=== PATIENT | female | born 1980 | race Caucasian/White ===

== ENCOUNTER 2018-06-27 23:58 | Emergency (ER) | payer MEDICAID ==
[~2018-06-27] VITALS: Ht 165.1 cm; Wt 59.0 kg
--- NOTE | 2018-06-28 01:00 | NUR ---
Patient ambulated with steady gait. AAOx4. Speech is clear, speaks in complete sentences. Patient came with c/o abcess in bLUE on upper thighs x 6 days s/p iv drug use. Respiratory even and unlabored. No cardiovascular distress noted, alll pulses palpable. No GI/ distress. Patient in bed at lowest setting, side rails up x2, call light within reach. Fall precautions implemented per protocol.
[2018-06-28] MEDS ORDERED: SULFAMETH/TRIMETH 800/160 MG TABLET PO ONE (01:15)
[2018-06-28] MEDS ORDERED: CEphaleXIN 500 MG CAPSULE PO ONE (01:15)
[2018-06-28] MEDS ORDERED: CEphaleXIN 500 MG CAPSULE ONE (01:30)
[2018-06-28] MEDS ORDERED: SULFAMETH/TRIMETH 800/160 MG TABLET ONE (01:31)
--- NOTE | 2018-06-28 01:56 | NUR ---
Patient discharged to home in stable conditon. Written and verbal after care instructions given. Patient verbalizes understanding of instructions. Patient ambulated with stable gait.
[2018-06-28 02:15] VITALS: BP 105/67
== END 2018-06-28 02:16 | disposition home or self-care (01) ==
LOC: ER 06-28 00:02
DX: L02.416 Cutaneous abscess of left lower limb (principal); L02.415 Cutaneous abscess of right lower limb; T40.2X5A Adverse effect of other opioids, initial encounter; F11.10 Opioid abuse, uncomplicated; Y92.89 Other specified places as the place of occurrence of the external cause
CPT/HCPCS: A4663

== ENCOUNTER 2018-09-18 16:51 | Emergency (ER) | payer MEDICAID, OTHER ==
[~2018-09-18] VITALS: Ht 165.1 cm; Wt 61.2 kg
--- NOTE | 2018-09-18 17:16 | NUR ---
pt is in room #2b. dr Chris evaluated the pt.
--- NOTE | 2018-09-18 17:55 | NUR ---
NURSING CUSHION GUM APPLICATOR ANITHA PROVIDED PT WITH TAXI CARD. PT WAS PROVIDED WITH FOOD, CLOTHES , INFORMATION ABOUT SHELTERS AND HELTH / MEDICAL ASSISTANCE INFORMATION.
--- NOTE | 2018-09-18 18:02 | NUR ---
PT WAS D/C'd FROM [facility]. D/C INSTRUCTIONS GIVEN TO THE PT.
[2018-09-18 18:03] VITALS: BP 134/71
== END 2018-09-18 18:04 | disposition home or self-care (01) ==
LOC: ER 16:53
DX: J22 Unspecified acute lower respiratory infection (principal); F11.10 Opioid abuse, uncomplicated; F17.290 Nicotine dependence, other tobacco product, uncomplicated
CPT/HCPCS: 71045; A4663